=== PATIENT | female | born 1955 | race African-American/Black ===

== ENCOUNTER 2017-01-03 05:00 | Emergency (ER) | payer BC ==
[~2017-01-03] VITALS: Ht 165.1 cm; Wt 77.1 kg
--- NOTE | ~2017-01-03 | EKG ---
[place] [address] [facility] [employer] [place] [address] ELECTROCARDIOGRAM REPORT Name: IMELDA JARQUIN Room #: [facility] Daniel#: [id number] Admission: 01/03/17 Attend Phys: Discharge: 01/03/17 Date of : 55 Report #: [id number] THIS REPORT FOR: //name// [facility] ED Test Date: 2017-01-03 Test Time: 05:40:09 Pat Name: IMELDA JARQUIN Department: Room: Gender: F [employer]: charity : [id number] Requested By: Alisha Valderrama Order Number: [id number] MD: Kevin Parra Measurements Intervals [place] Rate: 70 P: 68 HI: 141 QRS: 8 QRSD: 80 T: QT: 374 QTc: 404 Interpretive Statements Sinus rhythm Nonspecific T abnormalities, lateral leads Compared to ECG 12/15/2015 08:24:41 T-wave abnormality now present Electronically Signed On 01-07-2017 8:10:00 CDT by Kevin Parra [email or web address] <ELECTRONICALLY SIGNED> By: Kevin Parra MD 01/07/17 0810 0540 9 Kevin Parra MD /ROMI
[~2017-01-03 05:00] MED LIST: ALEVE220 M1; ANTIVERT25 M1 PO; CARDIZEM60 MG PO; CELEBREX 200 M200 M1 PO; HYDROCODONE-AP1 EAC6 PO; HYDROCODONE-APA1 TA1 PO; HYSINGLA ER40 MG PO; LOSARTAN-HCTZ1 EACH PO; LYRICA 50 MG50 MG PO; LYRICA 75 MG CA75 MG PO; METFORMIN HCL500 MG PO; MOBIC15 MG PO; MOBIC7.5 MG PO; MOTION RELIEF25 MG PO; MS CONTIN15 MG PO; NEURONTIN 300300 M1 PO; NORCO 10-325 T1 EACH PO; NORCO 7.5-3251 EACH PO; PERCOCET 7.5-31 EACH PO; TRAMADOL 50 MG50 MG PO; ULTRAM 50MG TAB50 MG PO; VALIUM2 MG PO; ZETIA10 MG PO; ZOFRAN ODT4 MG PO
[2017-01-03] MEDS ORDERED: XANAX 0.5 MG0.5 MG PO (05:23)
[2017-01-03 05:33] LABS: HEMATOCRIT 38.6 % (37.0-47.0); MCH 29.8 pg (26.0-34.0); MCHC 33.7 g/dL (28.0-37.0); MCV 88.4 fL (80.0-100.0); PLATELET COUNT 223 thou/uL (150-400); RBC 4.36 mil/uL (4.20-5.00); RDW 14.2 % (10.5-14.5); WBC 5.4 thou/uL (4.0-11.0)
[2017-01-03 05:39] LABS: MANUAL DIFF YES
[2017-01-03 05:43] LABS: ANION GAP 10 mmol/L (7-16); BUN 16 mg/dL (7-18); CALCIUM 8.9 mg/dL (8.5-10.1); CHLORIDE 106 mmol/L (98-107); CO2 23 mmol/L (21-32); CREATININE 0.8 mg/dL (0.6-1.0); GLUCOSE 127 mg/dL (74-106); POTASSIUM 3.6 mmol/L (3.5-5.1); SODIUM 139 mmol/L (136-145)
[2017-01-03 05:47] LABS: APTT 22.6 Seconds (24.5-32.8); PROTIME 10.7 Seconds (9.3-11.4)
[2017-01-03 05:50] LABS: ALBUMIN 3.7 g/dL (3.4-5.0); ALKALINE PHOSPHATASE 56 U/L (46-116); SGOT 19 U/L (15-37); SGPT 22 U/L (30-65); TOTAL BILIRUBIN 0.4 mg/dL (<0.1-1.0); TOTAL PROTEIN 7.3 g/dL (6.4-8.2); TROPONIN-I < 0.04 ng/mL (<0.04-0.07)
[2017-01-03 06:09] LABS: ABSOLUTE NEUTROPHILS 2.8 thou/uL (1.4-8.2); TOTAL CELL COUNT 100
[2017-01-03] MEDS ORDERED: BUTALB-APAP-CA1 EACH PO (06:21)
[2017-01-03] MEDS ORDERED: ANTIVERT25 MG PO (06:21)
== END 2017-01-03 06:37 | disposition home or self-care (01) ==
LOC: ER 05:00
PROVIDERS: Emergency Medicine
DX: R42 Dizziness and giddiness (principal); R51 Headache; R11.0 Nausea; G47.30 Sleep apnea, unspecified; I10 Essential (primary) hypertension; E11.9 Type 2 diabetes mellitus without complications; E78.00 Pure hypercholesterolemia, unspecified; Z90.710 Acquired absence of both cervix and uterus; Z90.89 Acquired absence of other organs; Z88.0 Allergy status to penicillin; Z88.5 Allergy status to narcotic agent